=== PATIENT | female | born 2000 | race African-American/Black ===

== ENCOUNTER 2019-01-01 22:44 | Emergency (ER) | payer SELFPAY ==
[~2019-01-01] VITALS: Ht 152.4 cm; Wt 49.9 kg
[2019-01-01] MEDS ORDERED: KETOROLAC 30 MG/ML VIAL IVP STA (22:58)
[2019-01-01] MEDS ORDERED: NS IV 1000 ML 1,000 ML IV SCH (23:00)
--- NOTE | 2019-01-01 23:07 | ED General ---
General Chief Complaint: General Problems/Pain Stated Complaint: BREAST PAIN Source of Information: Patient, EMS Exam Limitations: No Limitations History of Present Illness Date Seen by Provider: January 01, 2019 Time Seen by Provider: 22:44 Initial Comments 18-year-old female presenting with complaints of bilateral breast pain. She states this is been going on for several days that got worse today. She woke up this morning with pain in the left breast and had blood and discharge coming from the breast. She denies any direct trauma to her breast. She is not currently breast-feeding. She does have an implanted control device in her left upper arm. This was placed approximately a year ago after the of her son. She last had a menstrual period in November but states that usually gets every 3-4 months when she'll have some light bleeding since having this control device implanted. She denies any vaginal discharge or bleeding. She has not noticed a fever or chills at home. Her breasts of gotten more tender especially tonight so that is what prompted her to call 911 to come in to be evaluated. Allergies and Home Medications Allergies Coded Allergies: No Known Drug Allergies (Unverified , 01/01/19) Home Medications Amoxicillin/Potassium Clav 1 Each Tablet, 1 EACH PO BID Prescribed by: MIKKI CHINO on 01/02/19 0028 Naproxen 500 Mg Tablet, 500 MG PO BID PRN for PAIN-MODERATE TO SEVERE Prescribed by: MIKKI CHINO on 01/02/19 0028 Patient Home Medication List Home Medication List Reviewed: Yes Review of Systems Review of Systems Constitutional: No chills, No dizziness, No fever EENTM: no symptoms reported Respiratory: no symptoms reported Cardiovascular: no symptoms reported Gastrointestinal: no symptoms reported Genitourinary: no symptoms reported Musculoskeletal: no symptoms reported Skin: other (she feels that her nipples are more red than normal. She also has severe pain to bilateral breasts with bloody discharge that was coming from the left breast around 2:45 AM today.) Psychiatric/Neurological: No Symptoms Reported Hematologic/Lymphatic: Denies Easy Bleeding, Denies Easy Bruising Immunological/Allergic: no symptoms reported Past Svkiunm-Wyhpav-Cugasf Hx Past Med/Social Hx: Reviewed Nursing Past Med/Soc Hx Patient Social History Recent Foreign Travel: No Contact w/Someone Who Travel: No Physical Exam Vital Signs Vital Signs - First Documented 01/01/19 22:44 Temp 99.0 Pulse 106 Resp 15 B/P (MAP) 133/78 O2 Delivery Room Air Capillary Refill : Height, Weight, BMI Height: '" Weight: lbs. oz. kg; BMI Method: General Appearance: No Apparent Distress, WD/WN HEENT: PERRL/EOMI, Normal ENT Inspection, Pharynx Normal Neck: Full Range of Motion, Normal Inspection, Non Tender, Supple Respiratory: Lungs Clear, Normal Breath Sounds, No Accessory Muscle Use, No Respiratory Distress Cardiovascular: Regular Rate, Rhythm, Normal Peripheral Pulses Gastrointestinal: Normal Bowel Sounds, Non Tender, Soft Back: Normal Inspection Extremity: Normal Capillary Refill, Normal Inspection, Normal Range of Motion, Non Tender, No Calf Tenderness Neurologic/Psychiatric: Alert, Oriented x3, No Motor/Sensory Deficits, Normal 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 Tender to palpation on bilateral breasts but worse on the left side. No discharge from either nipple currently.) Focused Exam Sepsis Stage: Ruled Out Reason for ruling out sepsis: Normal WBC and Lactic Acid only slightly above normal at 2.2. Possible Source: Skin/Soft Tissue Lactate Level 01/01/19 23:05: Lactic Acid Level 2.23*H Time of Focused Exam: 00:09 Respiratory: Chest Non Tender, Lungs Clear, Normal Breath Sounds, No Accessory Muscle Use, No Respiratory Distress Cardiovascular: Regular Rate, Rhythm, Normal Peripheral Pulses Capillary Refill: Less Than 3 Seconds Peripheral Pulses: 2+ Dorsalis Pedis (R), 2+ Left Dors-Pedis (L), 2+ Radial Pulses (R), 2+ Radial Pulses (L) Skin: normal color, warm/dry Lactic Acid Level Laboratory Tests Test 01/01/19 23:05 Lactic Acid Level 2.23 MMOL/L (0.50-2.00) *H Within 3hrs of presentation: Admin fluids, Admin ABX, Blood cultures prior to ABX's, D/C Instructions given to patient, Focus exam, Lactate level Progress/Results/Core Measures Suspected Sepsis Recent Fever Within 48 Hours: No Infection Criteria Present: Suspected New Infection New/Unexplained Altered Menta: No Within 3hrs of presentation: Admin fluids, Admin ABX, Blood cultures prior to ABX's, D/C Instructions given to patient, Focus exam, Lactate level SIRS Temperature: Pulse: Respiratory Rate: Laboratory Tests 01/01/19 23:05: White Blood Count 6.9 Blood Pressure / Mean: 01/01/19 23:05: Lactic Acid Level 2.23*H Laboratory Tests 01/01/19 23:05: Creatinine 0.52L, Platelet Count 256, Total Bilirubin 0.2 Results/Orders Lab Results Laboratory Tests Test 01/01/19 23:05 Range/Units White Blood Count 6.9 4.3-11.0 10^3/uL Red Blood Count 4.69 4.35-5.85 10^6/uL Hemoglobin 11.2 L 11.5-16.0 G/DL Hematocrit 37 35-52 % Mean Corpuscular Volume 76 L 80-99 FL Mean Corpuscular Hemoglobin 24 L 25-34 PG Mean Corpuscular Hemoglobin Concent 32 32-36 G/DL Red Cell Distribution Width 15.6 H 10.0-14.5 % Platelet Count 256 130-400 10^3/uL Mean Platelet Volume 9.3 7.4-10.4 FL Neutrophils (%) (Auto) 42 42-75 % Lymphocytes (%) (Auto) 46 H 12-44 % Monocytes (%) (Auto) 9 0-12 % Eosinophils (%) (Auto) 3 0-10 % Basophils (%) (Auto) 0 0-10 % Neutrophils # (Auto) 2.9 1.8-7.8 X 10^3 Lymphocytes # (Auto) 3.2 1.0-4.0 X 10^3 Monocytes # (Auto) 0.6 0.0-1.0 X 10^3 Eosinophils # (Auto) 0.2 0.0-0.3 10^3/uL Basophils # (Auto) 0.0 0.0-0.1 10^3/uL Sodium Level 139 135-145 MMOL/L Potassium Level 3.7 3.6-5.0 MMOL/L Chloride Level 105 98-107 MMOL/L Carbon Dioxide Level 17 L 21-32 MMOL/L Anion Gap 17 H 5-14 MMOL/L Blood Urea Nitrogen 6 L 7-18 MG/DL Creatinine 0.52 L 0.60-1.30 MG/DL Estimat Glomerular Filtration Rate > 60 BUN/Creatinine Ratio 12 Glucose Level 86 70-105 MG/DL Lactic Acid Level 2.23 *H 0.50-2.00 MMOL/L Calcium Level 9.0 8.5-10.1 MG/DL Corrected Calcium 9.1 8.5-10.1 MG/DL Total Bilirubin 0.2 0.1-1.0 MG/DL Aspartate Amino Transf (AST/SGOT) 17 5-34 U/L Alanine Aminotransferase (ALT/SGPT) 9 0-55 U/L Alkaline Phosphatase 70 40-136 U/L Total Protein 7.1 6.4-8.2 GM/DL Albumin 3.9 3.2-4.5 GM/DL My Orders Orders - MIKKI CHINO MD Cbc With Automated Diff (01/01/19 22:58) Comprehensive Metabolic Panel (01/01/19 22:58) Blood Culture (01/01/19 22:58) Ed Iv/Invasive Line Start (01/01/19 22:58) Ns Iv 1000 Ml (Sodium Chloride 0.9%) (01/01/19 23:00) Ketorolac Injection (Toradol Injection) (01/01/19 22:58) Lactic Acid Analyzer (01/01/19 22:58) Orthostatic Vital Signs (Adult (01/01/19 22:58) Monitor-Rhythm Ecg Trace Only (01/01/19 23:14) Ceftriaxone For Iv Use (Rocephin For I (01/02/19 00:06) Ns Iv 1000 Ml (Sodium Chloride 0.9%) (01/02/19 00:15) Vital Signs/I&O 01/01/19 01/01/19 22:44 23:20 Temp 99.0 Pulse 106 84 95 110 Resp 15 B/P (MAP) 133/78 122/65 (84) 125/82 (96) 125/72 (89) O2 Delivery Room Air Capillary Refill : Progress Note #1: Time: 23:00 Progress Note Check labs and blood culture with lactic acid. Give IVF for hydration and Torad ol for pain. She ultimately will benefit from an ultrasound or mammogram of her breasts but those tests are not available tonight in the ED. Progress Note #2: Time: 00:05 Progress Note Lactic acid came back at 2.23. Her white blood cell count of 6.9. Chemistry otherwise is normal. Pt reports improved pain after treatment. D/w Dr. Thomas from Hospitalist service since pt has no PCP. She agreed that the pt could be worked up as an outpatient for the breast pain and mastitis vs early onset breast cancer. Will treat with antibiotics for possible mastitis and continue NSAIDS for pain. Follow up with clinic for establishing care and to get in for Ultrasound or further testing to look at breasts and source of pain and discharge. Departure Impression Primary Impression: Periductal mastitis of left breast Additional Impression: Periductal mastitis of right breast Disposition: HOME, SELF-CARE Condition: Stable Departure-Patient Inst. Decision time for Depature: 00:25 Referrals: NO,LOCAL PHYSICIAN (PCP) Primary Care Physician Patient Instructions: Common Breast Problems, Mastitis (DC) Add. Discharge Instructions: Follow up with [facility] for establishing care and to get ultrasound or other imaging to evaluate your breast pain and discharge. Take the full course of antibiotics for your breast pain and discharge. All discharge instructions reviewed with patient and/or family. Voiced understanding. Scripts Naproxen (Naprosyn) 500 Mg Tablet 500 MG PO BID PRN for PAIN-MODERATE TO SEVERE for 10 Days, #20 TAB 0 Refills Prov: MIKKI CHINO MD 01/02/19 Amoxicillin/Potassium Clav (Augmentin 875-125 Tablet) 1 Each Tablet 1 EACH PO BID for mastitits for 10 Days, #20 TAB 0 Refills Prov: MIKKI CHINO MD 01/02/19 Work/School Note: Family Work Note, Patient Received Medical Care In the Emergency Department On: January 02, 2019 Patient Will Be Able to Return to Work/School On: Jan 06, 2019 Patient Restrictions: Limit your lifting to no more than 20 pounds for the next week. Work Release Form Date Seen in the Emergency Department: January 02, 2019 Return to Work: Jan 06, 2019 Restrictions: No Restrictions Images Female/Male 1 - Severe, Tenderness, Other-See Progress Note 2 - Moderate, Tenderness, Other-See Progress Note Progress Bilateral breast tenderness, but worse on left than right. No discharge expressed tonight. No dimpling of the skin. Mild erythema to bilateral nipples /areola area. MIKKI CHINO MD January 01, 2019 23:07
[2019-01-01 23:20] VITALS: BP_SYST 122; BP_SYST 125; BP_DIAS 65; BP_DIAS 72; BP_DIAS 82
[2019-01-01 23:21] LABS: HEMATOCRIT 37 % (35-52); HEMOGLOBIN 11.2 G/DL (11.5-16.0); MEAN CORPUSCULAR HEMOGLOBIN 24 PG (25-34); MEAN CORPUSCULAR HGB CONC 32 G/DL (32-36); MEAN CORPUSCULAR VOLUME 76 FL (80-99); PLATELET COUNT 256 10^3/uL (130-400); RED CELL DISTRIBUTION WIDTH 15.6 % (10.0-14.5); WHITE BLOOD COUNT 6.9 10^3/uL (4.3-11.0)
[2019-01-01 23:22] LABS: BASOPHILS % (AUTO) 0 % (0-10); EOSINOPHILS # (AUTO) 0.2 10^3/uL (0.0-0.3); EOSINOPHILS % (AUTO) 3 % (0-10); LYMPHOCYTES # (AUTO) 3.2 X 10^3 (1.0-4.0); LYMPHOCYTES % (AUTO) 46 % (12-44); MEAN PLATELET VOLUME 9.3 FL (7.4-10.4); MONOCYTES # (AUTO) 0.6 X 10^3 (0.0-1.0); MONOCYTES % (AUTO) 9 % (0-12); NEUTROPHILS # (AUTO) 2.9 X 10^3 (1.8-7.8); NEUTROPHILS % (AUTO) 42 % (42-75)
[2019-01-01 23:49] LABS: ALKALINE PHOSPHATASE 70 U/L (40-136); BILIRUBIN,TOTAL 0.2 MG/DL (0.1-1.0); BUN/CREATININE RATIO 12; CARBON DIOXIDE 17 MMOL/L (21-32); CHLORIDE 105 MMOL/L (98-107); CREATININE SERUM 0.52 MG/DL (0.60-1.30); GFR ESTIMATED > 60; GLUCOSE 86 MG/DL (70-105); POTASSIUM 3.7 MMOL/L (3.6-5.0); SODIUM 139 MMOL/L (135-145)
[2019-01-01 23:50] LABS: ALANINE AMINOTRANSFERASE 9 U/L (0-55); ALBUMIN 3.9 GM/DL (3.2-4.5); TOTAL PROTEIN 7.1 GM/DL (6.4-8.2)
[2019-01-02] MEDS ORDERED: cefTRIAXone FOR IV USE 1,000 MG in WATER (STERILE) FOR INJECTION 10 ML IV STA (00:06)
[2019-01-02] MEDS ORDERED: NS IV 1000 ML 1,000 ML IV SCH (00:15)
[2019-01-02] MEDS ORDERED: AMOX-358 PO (00:28)
[2019-01-02] MEDS ORDERED: NAPR-1071 PO (00:28)
== END 2019-01-02 01:15 | disposition home or self-care (01) ==
LOC: ER FS 22:46
DX: N60.41 Mammary duct ectasia of right breast (principal); N60.42 Mammary duct ectasia of left breast
CPT/HCPCS: 36415; 80053; 83605; 85025; 87040; 93041; 96361; 96374; 96375

== ENCOUNTER 2019-02-19 14:36 | Emergency (ER) | payer MEDICAID | END 2019-02-19 16:52 | disposition home or self-care (01) | LOC: ER FS 14:36 ==

== ENCOUNTER 2019-03-24 21:37 | Emergency (ER) | payer MEDICAID ==
[~2019-03-24] VITALS: Ht 152.4 cm; Wt 59.0 kg
[~2019-03-24 21:37] MED LIST: AMOX-358 PO; NAPR-1071 PO
[2019-03-24] MEDS ORDERED: IBUPROFEN 600 MG (MOTRIN) TAB PO STA (22:49)
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
[2019-03-24] MEDS ORDERED: IBUP-1773 PO (23:57)
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
== END 2019-03-25 00:13 | disposition home or self-care (01) ==
LOC: EDUNIT# 21:37 → ER FS 21:38
DX: S90.01XA Contusion of right ankle, initial encounter (principal); F41.9 Anxiety disorder, unspecified; W24.0XXA Contact with lifting devices, not elsewhere classified, initial encounter; Y92.512 Supermarket, store or market as the place of occurrence of the external cause; Y99.0 Civilian activity done for income or pay
CPT/HCPCS: 73610